=== PATIENT | male | born 1990 | race Caucasian/White ===

== ENCOUNTER 2020-07-21 13:37 | Emergency (ER) | payer SELFPAY ==
[~2020-07-21] VITALS: Ht 188 cm; Wt 111.0 kg
[2020-07-21 14:23] VITALS: BP 139/86
[2020-07-21] MEDS ORDERED: FLUORESCEIN OPHTH TEST STRIP. OS ONE (14:45)
[2020-07-21] MEDS ORDERED: TETRACAINE 0.5% OPHTH SOLUTION 4ML BOTTLE. OS ONE (14:45)
[2020-07-21] MEDS ORDERED: ERYT1OIN6 OP (15:37)
--- NOTE | 2020-07-21 15:37 | PHYS DOC ---
Past Medical History Past Medical History: No Pertinent History Past Surgical History: No Surgical History Smoking Status: Current Every Day Smoker Alcohol Use: None Drug Use: None General Adult EDM: Chief Complaint: EYE PROBLEMS HPI: HPI: Patient is a 30 year old male who presents with patient has left eye pain with sclera pinkness and states when he wakes up in the morning that it feels like it is glued together. This is been going on since Saturday. He denies fever or recent illness. He states it is slightly blurry at at times. Patient denies headache, dizziness, fever, recent illness, chest pain, cough, diarrhea, shortness of breath, nasal congestion. Left eye is 20/40, right eye 20/25, bilateral eyes 20/25. Rates his discomfort of which he states is more like a irritation type discomfort at a 5 out of 10. There is no radiation of pain. Review of Systems: Review of Systems: Constitutional: Denies fever or chills. [] Eyes: + Left eye change in visual acuity. + Left eye irritation , + left eye discharge [] HENT: Denies nasal congestion or sore throat. [] Respiratory: Denies cough or shortness of breath. [] Cardiovascular: Denies chest pain or edema. [] GI: Denies abdominal pain, nausea, vomiting, bloody stools or diarrhea. [] : Denies dysuria. [] Musculoskeletal: Denies back pain or joint pain. [] Integument: Denies rash. [] Neurologic: Denies headache, focal weakness or sensory changes. [] Endocrine: Denies polyuria or polydipsia. [] Lymphatic: Denies swollen glands. [] Psychiatric: Denies depression or anxiety. [] Heart Score: Risk Factors: Risk Factors: DM, Current or recent (<one month) smoker, HTN, HLP, family history of CAD, obesity. Risk Scores: Score 0 - 3: 2.5% MACE over next 6 weeks - Discharge Home Score 4 - 6: 20.3% MACE over next 6 weeks - Admit for Clinical Observation Score 7 - 10: 72.7% MACE over next 6 weeks - Early Invasive Strategies Current Medications: Current Medications Medications (Trade) Dose Ordered Sig/Jori Start Time Stop Time Status Last Admin Dose Admin Fluorescein Sodium (Ful-Janet) 1 strip 1X ONCE 07/21/20 14:45 07/21/20 14:46 DC 1/14/21 15:06 1 STRIP Tetracaine HCl (Tetracaine) 1 drop 1X ONCE 07/21/20 14:45 07/21/20 14:46 DC 07/21/20 15:06 1 DROP Allergies: Allergies: Allergies Coded Allergies Type Severity Reaction Last Updated Verified Sulfa (Sulfonamide Antibiotics) Allergy Intermediate rash, hives 12/08/15 Yes Physical Exam: PE: Constitutional: Well developed, well nourished, no acute distress, non-toxic appearance. [] HENT: Normocephalic, atraumatic, bilateral external ears normal, oropharynx moist, no oral exudates, nose normal. [] Eyes: PERRLA, EOMI, conjunctiva pink, no discharge. [] Neck: Normal range of motion, no tenderness, supple, no stridor. [] Cardiovascular:Heart rate regular rhythm, no murmur [] Lungs & Thorax: Bilateral breath sounds clear to auscultation [] Abdomen: Bowel sounds normal, soft, no tenderness, no masses, no pulsatile masses. [] Skin: Warm, dry, no erythema, no rash. [] Back: No tenderness, no CVA tenderness. [] Extremities: No tenderness, no cyanosis, no clubbing, ROM intact, no edema. [] Neurologic: Alert and oriented X 3, normal motor function, normal sensory function, no focal deficits noted. [] Psychologic: Affect normal, judgement normal, mood normal. [] Current Patient Data: Vital Signs: Vital Signs Date Time Temp Pulse Resp B/P (MAP) Pulse Ox O2 Delivery O2 Flow Rate FiO2 07/21/20 14:23 98.1 97 18 139/86 (103) 99 Room Air 98.1 EKG: EKG: [] Radiology/Procedures: Radiology/Procedures: [] Course & Med Decision Making: Course & Med Decision Making Pertinent Labs and Imaging studies reviewed. (See chart for details) See HPI. No drainage seen. Afebrile. Patient is sent home with erythromycin ointment. He is to follow-up with primary care his eye physician. Eye Exam Visual accuity: See HPI Eye exam: PERRL, Extraocular muscles intact. No signs of ruptured globe. Sclera pink. Red reflex present. Foreign body: No foreign bodies seen with examination or with lid flip exam. Arnold-pen: N/A Fluorescein test: 6:00 below iris corneal abrasion. Anesthetic: Tetracaine [] Dragon Disclaimer: Malcom Disclaimer: This electronic medical record was generated, in whole or in part, using a voice recognition dictation system. Departure Departure Impression: Primary Impression: Corneal abrasion Qualified Codes: S05.02XA - Injury of conjunctiva and corneal abrasion without foreign body, left eye, initial encounter Additional Impression: Conjunctivitis Qualified Codes: H10.32 - Unspecified acute conjunctivitis, left eye Disposition: HOME SELF CARE/HOMELESS Condition: STABLE Referrals: NO PCP (PCP) Patient Instructions: Conjunctivitis (Viral and Bacterial), Eye - Corneal Abrasion Additional Instructions: Follow-up with primary care provider or an eye doctor as needed. Use the medication as prescribed. Scripts Erythromycin Base (Erythromycin) 1 Gm Oint...g. 1 GM OP QID for 10 Days, #1 MISC Prov: FLORI STEWARD APRN 07/21/20 FLORI STEWARD APRN Jul 21, 2020 15:37
== END 2020-07-21 15:37 | disposition home or self-care (01) ==
LOC: ER 13:37
DX: S05.02XA Injury of conjunctiva and corneal abrasion without foreign body, left eye, initial encounter (principal); H10.32 Unspecified acute conjunctivitis, left eye; F17.200 Nicotine dependence, unspecified, uncomplicated; X58.XXXA Exposure to other specified factors, initial encounter; Y93.89 Activity, other specified; Y92.89 Other specified places as the place of occurrence of the external cause; Y99.8 Other external cause status
CPT/HCPCS: 99283